=== PATIENT | male | born 1955 | race Caucasian/White ===

== ENCOUNTER 2018-02-18 23:32 | Emergency (ER) | payer MEDICARE, OTHER ==
[~2018-02-18] VITALS: Ht 172.7 cm; Wt 83.9 kg
[~2018-02-18 23:32] MED LIST: ATOR10; BUPR75; Bactrim Ds Tab1 EACH PO; CEPH500 PO; ENDOCET; HYDACE5 PO; Keflex500 MG PO; RANI150; [UNRECOGNIZED DRUG - OTHER]
== END 2018-02-19 03:27 | disposition home or self-care (01) ==
LOC: ER 23:32
DX: S01.01XA Laceration without foreign body of scalp, initial encounter (principal); S80.212A Abrasion, left knee, initial encounter; F10.129 Alcohol abuse with intoxication, unspecified; Z23 Encounter for immunization; I10 Essential (primary) hypertension; F17.200 Nicotine dependence, unspecified, uncomplicated; W50.0XXA Accidental hit or strike by another person, initial encounter
CPT/HCPCS: 12004; 70450; 90471; 90714; 99284-25

== ENCOUNTER 2018-03-01 14:35 | Emergency (ER) | payer MEDICARE, OTHER ==
[~2018-03-01] VITALS: Ht 172.7 cm; Wt 81.7 kg
== END 2018-03-01 15:43 | disposition home or self-care (01) ==
LOC: ER 14:35
DX: S01.01XD Laceration without foreign body of scalp, subsequent encounter (principal); I10 Essential (primary) hypertension; F32.9 Major depressive disorder, single episode, unspecified; F17.210 Nicotine dependence, cigarettes, uncomplicated

== ENCOUNTER 2022-06-10 11:14 | Emergency (ER) | payer MEDICARE, OTHER ==
[~2022-06-10] VITALS: Ht 175.3 cm; Wt 79.4 kg
== END 2022-06-10 13:56 | disposition home or self-care (01) ==
LOC: ER 11:14
DX: T69.022A Immersion foot, left foot, initial encounter (principal); T69.021A Immersion foot, right foot, initial encounter; I10 Essential (primary) hypertension; F17.200 Nicotine dependence, unspecified, uncomplicated
CPT/HCPCS: 99283

== ENCOUNTER 2022-11-05 08:45 | Emergency (ER) | payer MEDICARE, OTHER ==
[~2022-11-05] VITALS: Ht 175.3 cm; Wt 77.1 kg
[2022-11-05 10:00] VITALS: BP 116/67
[2022-11-05] MEDS ORDERED: AZIT250 PO (12:22)
[2022-11-05] MEDS ORDERED: ALBU90OI INH (12:22)
[2022-11-05] MEDS ORDERED: PRED20 PO (12:22)
== END 2022-11-05 20:39 | disposition home or self-care (01) ==
LOC: ER 08:45
DX: J44.1 Chronic obstructive pulmonary disease with (acute) exacerbation (principal); Z59.00 Homelessness unspecified; I10 Essential (primary) hypertension; F17.210 Nicotine dependence, cigarettes, uncomplicated
CPT/HCPCS: 71046; 94640; A9270; J7512